=== PATIENT | male | born 2000 | race Caucasian/White ===

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

== ENCOUNTER 2019-04-24 13:20 | Emergency (ER) | payer OTHER, SELFPAY ==
[~2019-04-24] VITALS: Ht 177.8 cm; Wt 59.1 kg
[~2019-04-24 13:20] MED LIST: IBUP-1022 PO; INSUHUMDS; VITA50005
[2019-04-24] MEDS ORDERED: ADACEL/BOOSTRIX VACCINE (DIPHTH/PERTUSS/ACELL/TETANUS)0.5ML SYR (90715) IM ONE (17:15)
[2019-04-24 17:17] VITALS: BP 122/75
== END 2019-04-24 17:32 | disposition home or self-care (01) ==
LOC: M ED 13:20
DX: S61.201A Unspecified open wound of left index finger without damage to nail, initial encounter (principal); W26.0XXA Contact with knife, initial encounter; Y92.098 Other place in other non-institutional residence as the place of occurrence of the external cause; E11.9 Type 2 diabetes mellitus without complications; Z88.0 Allergy status to penicillin; F17.200 Nicotine dependence, unspecified, uncomplicated; Z79.899 Other long term (current) drug therapy; Z79.4 Long term (current) use of insulin

== ENCOUNTER 2019-08-16 15:04 | Emergency (ER) | payer OTHER ==
[~2019-08-16] VITALS: Ht 177.8 cm; Wt 60.3 kg
[2019-08-16] MEDS ORDERED: ACET-683 PO (16:10)
[2019-08-16] MEDS ORDERED: INSUHUMDS SC (16:10)
[2019-08-16 17:14] VITALS: BP 121/65
--- NOTE | 2019-08-17 06:52 | REP ---
REASON: Pain after trauma. PRIORS: None. There is a boxer's fracture. Electronically Signed by Tato Perez DO 08/17/2019 12:45 P
== END 2019-08-16 17:16 | disposition home or self-care (01) ==
LOC: M ED 15:04
DX: S62.336A Displaced fracture of neck of fifth metacarpal bone, right hand, initial encounter for closed fracture (principal); Y92.009 Unspecified place in unspecified non-institutional (private) residence as the place of occurrence of the external cause; Y93.C9 Activity, other involving computer technology and electronic devices; W22.8XXA Striking against or struck by other objects, initial encounter; E10.9 Type 1 diabetes mellitus without complications; F17.210 Nicotine dependence, cigarettes, uncomplicated; Z88.0 Allergy status to penicillin; Z79.4 Long term (current) use of insulin

== ENCOUNTER 2020-03-20 10:19 | Inpatient (IN) | payer OTHER ==
[2020-03-20] VITALS (20 sets, daily range): BP systolic 113–174; BP diastolic 60–93
[~2020-03-20] VITALS: Ht 180.3 cm; Wt 57.2 kg
[~2020-03-20 10:19] MED LIST changes: +ACET-683 PO; +INSUHUMDS SC
[2020-03-20] MEDS ORDERED: NS 1,000 ML IV ONE ×5 (10:45→17:00)
[2020-03-20] MEDS ORDERED: ONDANSETRON 4MG/2ML VIAL IV ONE (10:45)
[2020-03-20] MEDS ORDERED: INSULIN HUMAN REGULAR 100 UNITS in NS 99 ML IV SCH (10:57)
[2020-03-20] MEDS ORDERED: HumuLIN R (REGULAR) INSULIN (NovoLIN R) **100U/ML** PER UNIT IV ONE (11:00)
[2020-03-20 11:01] LABS: HEMATOCRIT 55.8 % (42.0-52.0); HEMOGLOBIN 18.2 g/dl (13.5-17.5); MEAN CORPUSCULAR HEMOGLOBIN 29.5 pg (27.0-33.0); MEAN CORPUSCULAR HGB CONC 32.6 g/dl (32.0-36.5); MEAN CORPUSCULAR VOLUME 90.6 fl (80.0-96.0); PLATELET COUNT, AUTOMATED 306 10^3/uL (150-450); RED BLOOD COUNT 6.16 10^6/uL (4.30-6.10)
[2020-03-20 11:02] LABS: ABG BASE EXCESS -23.9 (-2.0-2.0); ABG HCO3 4.2 MEQ/L (22.0-26.0); ABG O2 SATURATION 98.9 % (95.0-99.0); ABG STANDARD HCO3 8.9 MEQ/L (22.0-26.0); ABG TOTAL CO2 4.6 MEQ/L (22.0-29.0)
[2020-03-20 11:07] LABS: ABG PARTIAL PRESSURE CO2 15.1 mmHg (35.0-45.0); ABG PARTIAL PRESSURE O2 164.3 mmHg (75.0-100.0)
[2020-03-20 11:10] LABS: WHITE BLOOD COUNT 41.6 10^3/uL (4.0-10.0)
[2020-03-20 11:19] LABS: OSMOLALITY SERUM 338 MOSM/KG (275-295)
[2020-03-20] MEDS ORDERED: LIDOCAINE 2% 5ML JELLY UROJET TOP ONE (11:30)
[2020-03-20] MEDS ORDERED: LevoFLOXacin IV 750 MG in IV 1 EA IV ONE (11:30)
[2020-03-20] MEDS ORDERED: ISOVUE-370 76% 100ML VIAL As Ordered ONE (11:32)
[2020-03-20 11:36] LABS: ACETONE/KETONE > 46.00 MG/DL (<2.81); ALBUMIN 5.5 GM/DL (3.2-5.2); ALT/SGPT 60 U/L (12-78); BILIRUBIN,DIRECT < 0.1 MG/DL (0.0-0.2); BILIRUBIN,TOTAL 0.6 MG/DL (0.2-1.0); CK-MB VALUE MASS 1.1 NG/ML (<3.6); CPK CREATINE PHOSPHOKINASE 252 U/L (39-308); LIPASE 118 U/L (73-393); MB/CK RELATIVE INDEX 0.44 (< OR =4); PHOSPHORUS LEVEL 7.1 MG/DL (2.5-4.9); TROPONIN I < 0.02 NG/ML (< 0.10)
[2020-03-20 11:45] LABS: HEMOGLOBIN A1c 11.2 %
[2020-03-20 11:53] LABS: ATYPICAL LYMPH 2 % (0-5); LYMPHOCYTES 9 % (16-44); MONOCYTES 4 % (0-5); MYELOCYTES 2 % (0-0); NEUTROPHILS 78 % (28-66); PLATELET ESTIMATE NORMAL (NORMAL)
[2020-03-20 11:54] LABS: ANISOCYTOSIS 1+
--- NOTE | 2020-03-20 11:59 | REP ---
Clinical: Diabetic ketoacidosis . Comparison: None . Findings: The mediastinum and cardiac silhouette are stable and within normal limits for portable technique. The lung arroyo are clear without acute consolidation, effusion, or pneumothorax. Skeletal structures are intact. Impression: No acute cardiopulmonary process appreciated. Electronically Signed by Teddy Avila MD 03/20/2020 11:50 A
--- NOTE | 2020-03-20 12:05 | REP ---
Clinical: Abdominal pain with nausea and vomiting. Technique: Axial contrast enhanced images from the lung bases to the pubic symphysis using 100 ml Isovue 370 intravenous contrast material with coronal and sagittal re-formations. Findings: Lung bases are clear. Visualized heart and pericardium normal. Liver, spleen, pancreas, gallbladder, bilateral adrenal glands and kidneys are normal. The small and large bowel is without obstruction or acute inflammatory process. Normal terminal ileum and appendix are identified in the right lower quadrant. Few scattered sigmoid diverticula noted without acute diverticulitis. Pelvis demonstrates normal bladder and age appropriate prostate/seminal vesicles. No ascites. No free air. No adenopathy. Abdominal aorta without aneurysm or dissection. Musculoskeletal structures are intact and without acute osseous abnormality. Impression: No acute abdominopelvic pathology appreciated. Electronically Signed by Teddy Avila MD 03/20/2020 11:56 A
[2020-03-20] MEDS ORDERED: ACETAMINOPHEN TAB 650MG DOSE (2X325MG) PO PRN (12:15)
[2020-03-20] MEDS ORDERED: INSULIN IV RATE CHANGE DOCUMENTATION ML/HR XX SCH (12:15)
--- NOTE | 2020-03-20 12:43 | HPEPDOC ---
General Date of Admission 03/20/20 Date of Service: March 20, 2020 Chief Complaint The patient is a 19-year-old male admitted with a reason for visit of Vomiting, General Weakness. Source: Patient Exam Limitations: No limitations Timing/Duration: Day(s) Severity: Severe Associated Symptoms: Loss of appetite, Malaise, Nausea, Vomiting History of Present Illness Patient is 19 years old male with past medical history of type 1 diabetes diagnosed in 2013 on insulin pump presented hospital with polydipsia, polyuria, nausea and vomiting. Patient stated that on Saturday he drank alcohol cocktails, on the next day he started feeling nausea has increased polydipsia and polyuria. In emergency room patient was found to have leukocytosis of 14.6, glucose level of 608, potassium 5.7, lactic acid 7.53, blood gas showed pH 7, PCO2 15.1, bicarbonate 4.2. HbA1c 11. EKG showed sinus tachycardia. Abdomen CT did not show any acute abdominopelvic pathology . Home Medications Scheduled Insulin Human Lispro (Humalog) 100 Unit/1 Ml Vial, 1 UNITS SC DAILY, (Reported) sliding scale: 15 carbs/unit. MDD: 75 units Allergies Coded Allergies: Penicillins (Verified Allergy, Unknown, hives, 04/24/19) Past Medical History Medical History Type 1 diabetes Family History Both parents are healthy Social History * Smoker: Denies Alcohol: occationally Drugs: marijuana A-FIB/CHADSVASC A-FIB History Current/History of A-Fib/PAF?: No Current PO Anticoag Therapy: No Review of Systems Constitutional: Reports: Weakness, Fatigue; Denies: Chills, Fever Eyes: Denies: Pain, Vision change ENT: Denies: Head Aches Skin: Denies: Lesions Pulmonary: Reports: Dyspnea; Denies: Cough Cardiovascular: Denies: Chest Pain, Palpitations Gastrointestinal: Reports: Nausea, Vomiting Genitourinary: Denies: Incontinence, Hematuria Hematologic: Denies: Bruising Endocrine: Reports: Polydipsia, Polyuria Musculoskeletal: Denies: Neck Pain Neurological: Denies: Weakness Psych: Reports: Mood Normal Physical Examination General Exam: Positive: Alert, Cooperative Eye Exam: Positive: PERRLA ENT Exam: Positive: Atraumatic Neck Exam: Positive: Supple; Negative: JVD Chest Exam: Positive: Clear to auscultation Heart Exam: Positive: Tachycardic Telemetry: Positive: Sinus Abdomen Exam: Positive: Normal bowel sounds Extremity Exam: Negative: Clubbing, Cyanosis Skin Exam: Positive: Nl turgor and temperature Neuro Exam: Positive: Strength at 5/5 X4 ext, Cranial Nerves 3-12 NL Psych Exam: Positive: Mental status NL Vital Signs Vital Signs Date Time Temp Pulse Resp B/P (MAP) Pulse Ox O2 Delivery O2 Flow Rate FiO2 03/20/20 12:04 143 96 03/20/20 12:00 16 140/78 (98) 03/20/20 10:20 98.9 Room Air Laboratory Data Labs 24H Laboratory Tests 2 03/20/20 10:44: Neutrophils (%) (Auto) , Nucleated Red Blood Cells % (auto) 0.0, Neutrophils 78H, Band Neutrophils 5, Lymphocytes (Manual) 9L, Monocytes (Manual) 4, Myelocytes 2H, Atypical Lymphocytes 2, Anisocytosis 1+, Platelet Estimate NORMAL, Estimated Mean Plasma Glucose 275H, Hemoglobin A1c 11.2, Osmolality 338H, Phosphorus Level 7.1H, Magnesium Level 3.0H, Total Bilirubin 0.6, Direct Bilirubin < 0.1, Aspartate Amino Transf (AST/SGOT) 50H, Alanine Aminotransferase (ALT/SGPT) 60, Alkaline Phosphatase 148H, Total Creatine Kinase 252, Creatine Kinase MB 1.1, Creatine Kinase MB Relative Index 0.44, Troponin I < 0.02, Total Protein 10.0H, Albumin 5.5H, Albumin/Globulin Ratio 1.2, Lipase 118, B- Hydroxybutyrate > 46.00H 03/20/20 10:50: POC Glucose (Misc Panel) 608*H, POC Sodium (Misc Panel) 133L, POC Potassium (Misc Panel) 5.7H, POC Chloride (Misc Panel) 105, POC Total CO2 (Misc Panel) 8.0L, POC Blood Urea Nitrogen (Misc Panel 32H, POC Ionized Calcium (Misc Panel) 4.8, POC Creatinine (Misc Panel) 1.2, POC Hematocrit (Misc Panel) 58.0H 03/20/20 10:51: POC Lactate (Misc Panel) 7.53*H 03/20/20 10:52: Blood Gas Bicarbonate Standard 8.9L, Arterial Blood pH 7.060*L, Arterial Blood Partial Pressure CO2 15.1*L, Arterial Blood Partial Pressure O2 164.3H, Arterial Blood Total CO2 4.6L, Arterial Blood HCO3 4.2L, Arterial Blood Base Excess - 23.9L, Arterial Blood Oxygen Saturation 98.9 03/20/20 11:35: Urine Color STRAW, Urine Appearance CLEAR, Urine pH 5.0, Urine Specific [place] 1.021, Urine Protein 2+H, Urine Glucose (UA) 3+H, Urine Ketones 2+H, Urine Blood 2+H, Urine Nitrite NEGATIVE, Urine Bilirubin NEGATIVE, Urine Urobilinogen 0.2, Urine Leukocyte Esterase NEGATIVE, Urine WBC (Auto) 0, Urine RBC (Auto) 1, Urine Hyaline Casts (Auto) 0, Urine Bacteria (Auto) NEGATIVE, Urine Squamous Epithelial Cells 0, Urine Sperm (Auto) 03/20/20 12:05: Bedside Glucose (Misc Panel) 350H CBC/BMP Laboratory Tests 03/20/20 10:44 Microbiology Microbiology 03/20/20 Blood Culture, Received Pending Assessment/Plan Patient is 19 years old male with past medical history of type 1 diabetes diagnosed in 2013 on insulin pump presented hospital with polydipsia, polyuria, nausea and vomiting. Patient stated that on Saturday he drank alcohol cocktails, on the next day he started feeling nausea has increased polydipsia and polyuria. In emergency room patient was found to have leukocytosis of 14.6, glucose level of 608, potassium 5.7, lactic acid 7.53, blood gas showed pH 7, PCO2 15.1, bicarbonate 4.2. HbA1c 11. EKG showed sinus tachycardia. Abdomen CT did not show any acute abdominopelvic pathology . Problems (1) DKA (diabetic ketoacidoses) Status: Acute Problem Text: Patient is poor controlled diabetes Insulin drip BMP every 4 hours Potassium every 2 hours Aggressive IV hydration Nothing by mouth for now Phosphorus every 4 hours Monitor ABG Bicarbonate IV once (2) Type 1 diabetes Status: Chronic Problem Text: Patient has poor controlled diabetes HbA1c 11 Follow-up with blanket binder to adjust insulin pump in the outpatient settings (3) Leucocytosis Status: Acute Problem Text: most likely reactive 2/2 DKA Patient is afebrile, no obvious source of infection Will check blood culture Continue to monitor Plan / VTE VTE Prophylaxis Ordered?: Yes CARLEEN LOCKHART DO March 20, 2020 12:43
[2020-03-20] MEDS ORDERED: SODIUM BICARBONATE 8.4% INJ 50 ML SYRINGE IV SCH (13:00)
[2020-03-20] MEDS: INSULIN HUMAN REGULAR 100 UNITS in NS 99 ML IV SCH (13:13)
[2020-03-20] MEDS ORDERED: NS 1,000 ML IV SCH (14:00)
[2020-03-20] MEDS: INSULIN IV RATE CHANGE DOCUMENTATION ML/HR XX SCH ×6 (14:07→23:55)
[2020-03-20] MEDS ORDERED: INFLUENZA QUADRIVALENT PF VACCINE 0.5ML SYRINGE (90686) IM SCH (14:15)
[2020-03-20] MEDS ORDERED: KCL 20MEQ in NS 1000ML 1,000 ML IV SCH (14:15)
[2020-03-20 14:58] LABS: ABG BASE EXCESS -14.6 (-2.0-2.0); ABG HCO3 9.9 MEQ/L (22.0-26.0); ABG O2 SATURATION 98.6 % (95.0-99.0); ABG PARTIAL PRESSURE CO2 21.7 mmHg (35.0-45.0); ABG PARTIAL PRESSURE O2 135.1 mmHg (75.0-100.0); ABG STANDARD HCO3 13.6 MEQ/L (22.0-26.0); ABG TOTAL CO2 10.6 MEQ/L (22.0-29.0); ABG pH (ARTERIAL) 7.279 UNITS (7.350-7.450)
[2020-03-20 15:17] LABS: BLOOD UREA NITROGEN 23 MG/DL (7-18); CALCIUM LEVEL 8.5 MG/DL (8.5-10.1); CARBON DIOXIDE LEVEL 12 MEQ/L (21-32); CHLORIDE LEVEL 113 MEQ/L (98-107); CREATININE FOR GFR 1.22 MG/DL (0.70-1.30); GLUCOSE, FASTING 224 MG/DL (70-100); POTASSIUM SERUM 4.3 MEQ/L (3.5-5.1); SODIUM LEVEL 141 MEQ/L (136-145)
[2020-03-20] MEDS: KCL 20MEQ IN D5/0.45NS 1000ML 1,000 ML IV SCH ×2 (15:40→22:05)
[2020-03-20 16:50] LABS: PHOSPHORUS LEVEL 0.9 MG/DL (2.5-4.9); POTASSIUM SERUM 4.1 MEQ/L (3.5-5.1)
[2020-03-20] MEDS ORDERED: POTASSIUM PHOSPHATE INJ 20 MMOL in D5W 250 ML IV ONE (18:00)
[2020-03-20] MEDS: ONDANSETRON 4MG/2ML VIAL IV PRN ×2 (18:36→23:58)
[2020-03-20 18:51] LABS: HEMATOCRIT 40.8 % (42.0-52.0); MEAN CORPUSCULAR HEMOGLOBIN 29.6 pg (27.0-33.0); MEAN CORPUSCULAR HGB CONC 34.8 g/dl (32.0-36.5); MEAN CORPUSCULAR VOLUME 85.2 fl (80.0-96.0); PLATELET COUNT, AUTOMATED 243 10^3/uL (150-450); RED BLOOD COUNT 4.79 10^6/uL (4.30-6.10); WHITE BLOOD COUNT 26.3 10^3/uL (4.0-10.0)
[2020-03-20 18:52] LABS: HEMOGLOBIN 14.2 g/dl (13.5-17.5)
[2020-03-20 19:10] LABS: BLOOD UREA NITROGEN 17 MG/DL (7-18); CALCIUM LEVEL 8.3 MG/DL (8.5-10.1); CARBON DIOXIDE LEVEL 16 MEQ/L (21-32); CHLORIDE LEVEL 112 MEQ/L (98-107); CREATININE FOR GFR 0.95 MG/DL (0.70-1.30); GLUCOSE, FASTING 190 MG/DL (70-100); SODIUM LEVEL 137 MEQ/L (136-145)
[2020-03-20] MEDS: HEPARIN SOD (PORCINE) 5000UNITS/ML VIAL (J1644 PER 1000UNITS) SC SCH (19:54)
[2020-03-20] MEDS: RAMELTEON 8 MG TAB (ROZEREM) PO SCH (20:52)
--- NOTE | 2020-03-20 21:06 | ECGEPIP ---
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
[2020-03-21] VITALS (7 sets, daily range): BP systolic 108–135; BP diastolic 69–79
--- NOTE | 2020-03-21 00:12 | ECGEPIP ---
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 HEART RATE WAS 134 BPM AND TALL T WAVES WERE NOTED IN THE PRECORDIAL LEADS Electronically Signed on 03-21-2020 0:11:39 EDT by Talon Grijalva
[2020-03-21 00:34] LABS: BLOOD UREA NITROGEN 13 MG/DL (7-18); CALCIUM LEVEL 8.4 MG/DL (8.5-10.1); CARBON DIOXIDE LEVEL 19 MEQ/L (21-32); CHLORIDE LEVEL 110 MEQ/L (98-107); CREATININE FOR GFR 0.91 MG/DL (0.70-1.30); GLUCOSE, FASTING 151 MG/DL (70-100); POTASSIUM SERUM 3.7 MEQ/L (3.5-5.1); SODIUM LEVEL 137 MEQ/L (136-145)
[2020-03-21] MEDS: INSULIN IV RATE CHANGE DOCUMENTATION ML/HR XX SCH ×5 (00:59→10:18)
[2020-03-21] MEDS ORDERED: POTASSIUM PHOSPHATE INJ 20 MMOL in D5W 250 ML IV ONE (01:00)
[2020-03-21] MEDS: ONDANSETRON 4MG/2ML VIAL IV PRN (04:07)
[2020-03-21] MEDS: KCL 20MEQ IN D5/0.45NS 1000ML 1,000 ML IV SCH (04:24)
[2020-03-21 05:29] LABS: HEMOGLOBIN 13.3 g/dl (13.5-17.5); MEAN CORPUSCULAR HEMOGLOBIN 29.4 pg (27.0-33.0); MEAN CORPUSCULAR VOLUME 83.9 fl (80.0-96.0); PLATELET COUNT, AUTOMATED 216 10^3/uL (150-450); RED BLOOD COUNT 4.53 10^6/uL (4.30-6.10)
[2020-03-21 05:48] LABS: ALBUMIN 3.5 GM/DL (3.2-5.2); ALT/SGPT 35 U/L (12-78); BILIRUBIN,TOTAL 0.7 MG/DL (0.2-1.0); BLOOD UREA NITROGEN 11 MG/DL (7-18); CALCIUM LEVEL 8.5 MG/DL (8.5-10.1); CARBON DIOXIDE LEVEL 22 MEQ/L (21-32); CHLORIDE LEVEL 108 MEQ/L (98-107); CREATININE FOR GFR 0.82 MG/DL (0.70-1.30); GLUCOSE, FASTING 162 MG/DL (70-100); MAGNESIUM LEVEL 1.9 MG/DL (1.8-2.4); PHOSPHORUS LEVEL 2.5 MG/DL (2.5-4.9); POTASSIUM SERUM 3.7 MEQ/L (3.5-5.1); SODIUM LEVEL 137 MEQ/L (136-145); TOTAL PROTEIN 6.4 GM/DL (6.4-8.2)
[2020-03-21] MEDS: INSULIN HUMAN REGULAR 100 UNITS in NS 99 ML IV SCH ×2 (05:57→10:17)
[2020-03-21 08:49] LABS: BLOOD UREA NITROGEN 10 MG/DL (7-18); CALCIUM LEVEL 8.8 MG/DL (8.5-10.1); CARBON DIOXIDE LEVEL 22 MEQ/L (21-32); CHLORIDE LEVEL 108 MEQ/L (98-107); CREATININE FOR GFR 0.84 MG/DL (0.70-1.30); GLUCOSE, FASTING 163 MG/DL (70-100); PHOSPHORUS LEVEL 1.6 MG/DL (2.5-4.9); POTASSIUM SERUM 3.4 MEQ/L (3.5-5.1); SODIUM LEVEL 138 MEQ/L (136-145)
[2020-03-21] MEDS: HEPARIN SOD (PORCINE) 5000UNITS/ML VIAL (J1644 PER 1000UNITS) SC SCH ×2 (09:16→21:14)
[2020-03-21] MEDS ORDERED: GLUCAGON INJ 1MG VIAL SC PRN ×2 (09:45→10:45)
[2020-03-21] MEDS ORDERED: GLUCOSE 4GM CHEW TABLET PO PRN ×2 (09:45→10:45)
[2020-03-21] MEDS ORDERED: DEXTROSE 50% 50 ML SYRINGE IV PRN ×2 (09:45→10:45)
[2020-03-21] MEDS: LEVEMIR (INSULIN DETEMIR) 1 UNITS/0.01ML SC SCH ×2 (10:16→21:15)
--- NOTE | 2020-03-21 10:52 | IPNPDOC ---
Text Note Date of Service The patient was seen on 03/21/20. NOTE Subjective: Patient stated that he feels much better and he is hungry he wants to eat. Patient denied any fever, chills, nausea, vomiting chest pain, diarrhea or dysuria Objective: VITAL SIGNS: Please see below. GENERAL: awake, alert, NAD HEENT: NCAT, anicteric sclera, PERRLA NECK: supple, no JVD CARDIOVASCULAR EXAMINATION: NS1S2, regular rate/rhythm RESPIRATORY EXAMINATION: CTA b/l, no wheezes/rales/rhonchi ABDOMINAL EXAMINATION: positive bowel sounds x 4, NT EXTREMITIES: no cyanosis, clubbing, edema SKIN: warm, no rashes. NEUROLOGICAL EXAMINATION: AAO x 3, no motor/sensory deficits PSYCHIATRIC EXAMINATION: calm, normal affect Assessment/Plan Patient is 19 years old male with past medical history of type 1 diabetes diagnosed in 2013 on insulin pump presented hospital with polydipsia, polyuria, nausea and vomiting. Patient stated that on Saturday he drank alcohol cocktails, on the next day he started feeling nausea has increased polydipsia and polyuria. In emergency room patient was found to have leukocytosis of 14.6, glucose level of 608, potassium 5.7, lactic acid 7.53, blood gas showed pH 7, PCO2 15.1, bicarbonate 4.2. HbA1c 11. EKG showed sinus tachycardia. Abdomen CT did not show any acute abdominopelvic pathology . Problems (1) DKA (diabetic ketoacidoses) Resolved Anion gap closed, bicarbonate with an normal limit, blood glucose levels under control We'll start diabetes diet and bridge to basal insulin and insulin sliding scale (2) Type 1 diabetes Patient has poor controlled diabetes HbA1c 11 Follow-up with professor of chemical engineering to adjust insulin pump in the outpatient settings (3) Leucocytosis Improved most likely reactive 2/2 DKA Patient is afebrile, no obvious source of infection blood culture pending Continue to monitor Electrolytes imbalance Potassium replaced VS,Fishbone, I+O VS, Fishbone, I+O Laboratory Tests 03/20/20 13:18 03/20/20 14:23 03/20/20 16:00 03/20/20 18:39 03/20/20 23:54 03/21/20 05:07 03/21/20 08:07 Vital Signs Date Time Temp Pulse Resp B/P (MAP) Pulse Ox O2 Delivery O2 Flow Rate FiO2 03/21/20 08:00 98.1 100 20 119/71 (87) 97 Room Air I&O- Last 24 Hours up to 6 AM 03/21/20 06:00 Intake Total 6498.5 ml Output Total 2900 ml Balance 3598.5 ml CARLEEN LOCKHART DO March 21, 2020 10:52
[2020-03-21] MEDS: KCL 20MEQ in NS 1000ML 1,000 ML IV SCH ×2 (11:30→21:44)
[2020-03-21] MEDS: HumaLOG INSULIN (NovoLOG) PER UNIT SC SCH ×2 (12:25→18:04)
[2020-03-21 16:21] LABS: BLOOD UREA NITROGEN 10 MG/DL (7-18); CALCIUM LEVEL 8.5 MG/DL (8.5-10.1); CARBON DIOXIDE LEVEL 25 MEQ/L (21-32); CHLORIDE LEVEL 107 MEQ/L (98-107); CREATININE FOR GFR 0.83 MG/DL (0.70-1.30); GLUCOSE, FASTING 180 MG/DL (70-100); POTASSIUM SERUM 3.6 MEQ/L (3.5-5.1); SODIUM LEVEL 139 MEQ/L (136-145)
[2020-03-21] MEDS ORDERED: CEPACOL LOZENGE PO PRN (20:00)
[2020-03-21] MEDS ORDERED: HumaLOG INSULIN (NovoLOG) PER UNIT SC SCH (21:00)
[2020-03-21] MEDS: RAMELTEON 8 MG TAB (ROZEREM) PO SCH (21:14)
[2020-03-21] MEDS: CEPACOL LOZENGE PO PRN (21:14)
[2020-03-22 00:27] LABS: BLOOD UREA NITROGEN 8 MG/DL (7-18); CALCIUM LEVEL 8.4 MG/DL (8.5-10.1); CARBON DIOXIDE LEVEL 29 MEQ/L (21-32); CHLORIDE LEVEL 104 MEQ/L (98-107); CREATININE FOR GFR 0.73 MG/DL (0.70-1.30); GLUCOSE, FASTING 246 MG/DL (70-100); POTASSIUM SERUM 3.4 MEQ/L (3.5-5.1); SODIUM LEVEL 139 MEQ/L (136-145)
[2020-03-22] MEDS: CEPACOL LOZENGE PO PRN ×3 (01:18→11:52)
[2020-03-22 06:00] VITALS: BP 114/70
[2020-03-22] MEDS: HumaLOG INSULIN (NovoLOG) PER UNIT SC SCH ×2 (07:16→12:00)
[2020-03-22] MEDS: KCL 20MEQ in NS 1000ML 1,000 ML IV SCH (07:41)
[2020-03-22] MEDS: LEVEMIR (INSULIN DETEMIR) 1 UNITS/0.01ML SC SCH (07:42)
[2020-03-22] MEDS: HEPARIN SOD (PORCINE) 5000UNITS/ML VIAL (J1644 PER 1000UNITS) SC SCH (07:42)
[2020-03-22 08:46] LABS: BASO % 0.2 % (0.0-1.0); EOS % 0.1 % (0.0-3.0); HEMATOCRIT 40.2 % (42.0-52.0); HEMOGLOBIN 13.6 g/dl (13.5-17.5); LYMPH # 2.6 10^3/uL (1.5-5.0); LYMPH % 31.3 % (24.0-44.0); MEAN CORPUSCULAR HEMOGLOBIN 29.1 pg (27.0-33.0); MEAN CORPUSCULAR HGB CONC 33.8 g/dl (32.0-36.5); MEAN CORPUSCULAR VOLUME 85.9 fl (80.0-96.0); MONO # 1.1 10^3/uL (0.0-0.8); MONO % 12.6 % (0.0-5.0); NEUTROPHILS # 4.6 10^3/uL (1.5-8.5); NEUTROPHILS % 55.2 % (36.0-66.0); PLATELET COUNT, AUTOMATED 186 10^3/uL (150-450); RED BLOOD COUNT 4.68 10^6/uL (4.30-6.10); WHITE BLOOD COUNT 8.3 10^3/uL (4.0-10.0)
[2020-03-22 09:01] LABS: BLOOD UREA NITROGEN 8 MG/DL (7-18); CALCIUM LEVEL 8.6 MG/DL (8.5-10.1); CARBON DIOXIDE LEVEL 31 MEQ/L (21-32); CHLORIDE LEVEL 105 MEQ/L (98-107); CREATININE FOR GFR 0.62 MG/DL (0.70-1.30); GLUCOSE, FASTING 95 MG/DL (70-100); MAGNESIUM LEVEL 1.8 MG/DL (1.8-2.4); SODIUM LEVEL 143 MEQ/L (136-145)
[2020-03-22] MEDS ORDERED: POTASSIUM CHLORIDE 10 MEQ SR TABLET PO ONE ×3 (09:30→15:00)
[2020-03-22] MEDS ORDERED: KCL 10MEQ/100ML SWI (KRUN) 10 MEQ in IV 1 EA IV ONE (09:45)
[2020-03-22] MEDS ORDERED: CHLORASEPTIC SPRAY MT PRN (12:15)
[2020-03-22] MEDS ORDERED: SORE15LO PO (13:44)
[2020-03-22] MEDS ORDERED: CHLORSP MT (13:44)
[2020-03-22] MEDS ORDERED: ACET1TAB55 PO (13:44)
[2020-03-22] MEDS ORDERED: INSU1MIS20 SC (13:44)
[2020-03-22] MEDS ORDERED: INSUDET SC (13:44)
[2020-03-22] MEDS ORDERED: BLOOKIT21 XX (13:44)
[2020-03-22] MEDS ORDERED: LANC30MI XX (13:44)
[2020-03-22] MEDS ORDERED: GLUC1TES2 XX (13:44)
[2020-03-22] MEDS ORDERED: ALCOPAD25 TOP (13:44)
[2020-03-22] MEDS ORDERED: INSUHUMDS SC ×2 (13:49)
[2020-03-22 14:00] VITALS: BP 119/78
[2020-03-22 14:04] LABS: BLOOD UREA NITROGEN 10 MG/DL (7-18); CALCIUM LEVEL 9.3 MG/DL (8.5-10.1); CARBON DIOXIDE LEVEL 29 MEQ/L (21-32); CHLORIDE LEVEL 107 MEQ/L (98-107); CREATININE FOR GFR 0.62 MG/DL (0.70-1.30); GLUCOSE, FASTING 106 MG/DL (70-100); POTASSIUM SERUM 3.6 MEQ/L (3.5-5.1); SODIUM LEVEL 142 MEQ/L (136-145)
--- NOTE | 2020-03-22 18:32 | DS.PDOC ---
Discharge Summary General Date of Admission March 20, 2020 at 12:15 Date of Discharge 03/22/20 Discharge Summary PROCEDURES PERFORMED DURING STAY: [None]. ADMITTING DIAGNOSES: DKA (diabetic ketoacidoses) Type 1 diabetes Leucocytosis Electrolytes imbalance DISCHARGE DIAGNOSES: DKA (diabetic ketoacidoses) Type 1 diabetes Leucocytosis Electrolytes imbalance COMPLICATIONS/CHIEF COMPLAINT: Diabetic Ketoacidoses. HISTORY OF PRESENT ILLNESS: Patient is 19 years old male with past medical history of type 1 diabetes diagnosed in 2013 on insulin pump presented hospital with polydipsia, polyuria, nausea and vomiting. Patient stated that on Saturday he drank alcohol cocktails, on the next day he started feeling nausea has increased polydipsia and polyuria. In emergency room patient was found to have leukocytosis of 14.6, glucose level of 608, potassium 5.7, lactic acid 7.53, blood gas showed pH 7, PCO2 15.1, bicarbonate 4.2. HbA1c 11. EKG showed sinus tachycardia. Abdomen CT did not show any acute abdominopelvic pathology . HOSPITAL COURSE: During hospital stay following issue addressed (1) DKA (diabetic ketoacidoses) Resolved after insulin drip Anion gap closed, bicarbonate with an normal limit, blood glucose levels under control Patient received treatment with basal insulin and insulin sliding scale (2) Type 1 diabetes Patient has poor controlled diabetes HbA1c 11 Follow-up with wharf helper to adjust insulin pump in the outpatient settings (3) Leucocytosis Resolved most likely reactive 2/2 DKA Patient is afebrile, no obvious source of infection blood culture negative Continue to monitor Electrolytes imbalance Potassium replaced DISCHARGE MEDICATIONS: Please see below. ALLERGIES: Please see below. PHYSICAL EXAMINATION ON DISCHARGE: VITAL SIGNS: Please see below. GENERAL: awake, alert, NAD HEENT: NCAT, anicteric sclera, PERRLA NECK: supple, no JVD CARDIOVASCULAR EXAMINATION: NS1S2, regular rate/rhythm RESPIRATORY EXAMINATION: CTA b/l, no wheezes/rales/rhonchi ABDOMINAL EXAMINATION: positive bowel sounds x 4, NT EXTREMITIES: no cyanosis, clubbing, edema SKIN: warm, no rashes. NEUROLOGICAL EXAMINATION: AAO x 3, no motor/sensory deficits PSYCHIATRIC EXAMINATION: calm, normal affect LABORATORY DATA: Please see below. PROGNOSIS: Fair ACTIVITY: [As tolerated]. DIET: Diabetes DISPOSITION: Home, Self-Care. DISCHARGE INSTRUCTIONS: Check glucose level before each meal and before bed time ITEMS TO FOLLOWUP ON ON OUTPATIENT: Follow-up with wharf helper and dyspnea DISCHARGE CONDITION: [Stable]. TIME SPENT ON DISCHARGE: Greater than 20 minutes. Vital Signs/I&Os Vital Signs Date Time Temp Pulse Resp B/P (MAP) Pulse Ox O2 Delivery O2 Flow Rate FiO2 03/22/20 14:00 97.4 94 20 119/78 (92) 98 Room Air I&O- Last 24 Hours up to 6 AM 03/22/20 06:00 Intake Total 3566 ml Output Total 4175 ml Balance -609 ml Laboratory Data Labs 24H Laboratory Tests 2 03/21/20 20:17: Bedside Glucose (Misc Panel) 191H 03/21/20 23:45: Anion Gap 6L, Calcium Level 8.4L 03/22/20 00:21: Bedside Glucose (Misc Panel) 253H 03/22/20 04:20: Bedside Glucose (Misc Panel) 75 03/22/20 06:51: Bedside Glucose (Misc Panel) 97 03/22/20 08:20: Immature Granulocyte % (Auto) 0.6, Neutrophils (%) (Auto) 55.2, Lymphocytes (%) (Auto) 31.3, Monocytes (%) (Auto) 12.6H, Eosinophils (%) (Auto) 0.1, Basophils (%) (Auto) 0.2, Neutrophils # (Auto) 4.6, Lymphocytes # (Auto) 2.6, Monocytes # (Auto) 1.1H, Eosinophils # (Auto) 0.0, Basophils # (Auto) 0.0, Nucleated Red Blood Cells % (auto) 0.0, Anion Gap 7L, Calcium Level 8.6, Magnesium Level 1.8 03/22/20 11:35: Anion Gap 6L, Calcium Level 9.3 03/22/20 12:01: Bedside Glucose (Misc Panel) 76 CBC/BMP Laboratory Tests 03/21/20 23:45 03/22/20 08:20 03/22/20 11:35 FSBS Laboratory Tests Test 03/21/20 20:17 03/22/20 00:21 03/22/20 04:20 03/22/20 06:51 Range/Units Bedside Glucose (Misc Panel) 191 253 75 97 70-105 MG/DL Test 03/22/20 12:01 Range/Units Bedside Glucose (Misc Panel) 76 70-105 MG/DL Microbiology Microbiology 03/20/20 Blood Culture - Preliminary, Resulted No Growth after 48 hours. All Specime... 03/20/20 Blood Culture - Preliminary, Resulted No Growth after 48 hours. All Specime... Discharge Medications Scheduled Blood Sugar Diagnostic (Advanced Glucose Test Strips) 1 Each Strip, 1 STRIP XX ASDIRECTED Insulin Detemir (Levemir) 100 Unit/1 Ml Vial, 14 UNITS SC BID Insulin Human Lispro (Humalog) 100 Unit/1 Ml Vial, 0 UNITS SC AC as per sliding scale from hospital protocol Insulin Human Lispro (Humalog) 100 Unit/1 Ml Vial, 0 UNITS SC QHS as per sliding scale from hospital protocol Scheduled PRN Acetaminophen (Acetaminophen) 325 Mg Tablet, 650 MG PO Q4H PRN for PAIN OR FEVER Benzocaine/Menthol (Sore Throat Lozenge) 1 Each Lozenge, 1 ISABEL PO Q4HP PRN for SORE THROAT Phenol (Sore Throat [place]) 177 Ml [place], 2 SPRAY MT Q2HP PRN for SORE THROAT Allergies Coded Allergies: Penicillins (Verified Allergy, Unknown, hives, 04/24/19) CARLEEN LOCKHART DO March 22, 2020 18:32
== END 2020-03-22 15:28 | disposition home or self-care (01) | DRG 420 ==
LOC: M ED 10:19 → M ICU 12:15 → ENRESERV 12:31 → M MSPAV 03-21 11:40
PROVIDERS: ADMIT Internal Medicine; ATTEND Internal Medicine
DX: E10.10 Type 1 diabetes mellitus with ketoacidosis without coma (principal); D72.829 Elevated white blood cell count, unspecified; Z79.4 Long term (current) use of insulin; Z79.899 Other long term (current) drug therapy; Z88.0 Allergy status to penicillin

== ENCOUNTER → 2020-03-29 | Outpatient (CLI) | payer OTHER ==
[~2020-03-29] MED LIST changes: +ACET1TAB55 PO; +ALCOPAD25 TOP; +BLOOKIT21 XX; +CHLORSP MT; +GLUC1TES2 XX; +INSU1MIS20 SC; +INSUDET SC; +LANC30MI XX; +SORE15LO PO
[2020-03-29 17:38] LABS: BLOOD UREA NITROGEN 18 MG/DL (7-18); CARBON DIOXIDE LEVEL 30 MEQ/L (21-32); CHLORIDE LEVEL 105 MEQ/L (98-107); CREATININE FOR GFR 0.72 MG/DL (0.70-1.30); GLUCOSE, FASTING 208 MG/DL (70-100); POTASSIUM SERUM 4.1 MEQ/L (3.5-5.1); SODIUM LEVEL 139 MEQ/L (136-145)
== END ==
LOC: M LAB 16:06
PROVIDERS: ATTEND Nurse Practitioner Family
DX: E87.6 Hypokalemia (principal)

== ENCOUNTER → 2020-03-31 | Outpatient (REF) | payer OTHER ==
[2020-03-31 16:24] LABS: BLOOD UREA NITROGEN 17 MG/DL (7-18); CALCIUM LEVEL 9.4 MG/DL (8.5-10.1); CARBON DIOXIDE LEVEL 27 MEQ/L (21-32); CHLORIDE LEVEL 106 MEQ/L (98-107); CREATININE FOR GFR 0.81 MG/DL (0.70-1.30); GLUCOSE, FASTING 165 MG/DL (70-100); POTASSIUM SERUM 4.4 MEQ/L (3.5-5.1); SODIUM LEVEL 139 MEQ/L (136-145)
== END ==
LOC: M SFHCPLAZ 11:41
PROVIDERS: ATTEND Nurse Practitioner Family
DX: E87.8 Other disorders of electrolyte and fluid balance, not elsewhere classified (principal)

== ENCOUNTER → 2021-10-16 | Outpatient (CLI) | payer OTHER ==
[2021-10-16 18:40] LABS: BASO % 0.2 % (0.0-1.0); EOS # 0.3 10^3/uL (0.0-0.5); EOS % 1.4 % (0.0-3.0); HEMATOCRIT 47.4 % (42.0-52.0); LYMPH # 2.3 10^3/uL (1.5-5.0); LYMPH % 13.5 % (24.0-44.0); MEAN CORPUSCULAR HEMOGLOBIN 29.8 pg (27.0-33.0); MEAN CORPUSCULAR HGB CONC 33.8 g/dl (32.0-36.5); MEAN CORPUSCULAR VOLUME 88.3 fl (80.0-96.0); MONO # 1.2 10^3/uL (0.0-0.8); MONO % 6.8 % (2.0-8.0); NEUTROPHILS # 13.4 10^3/uL (1.5-8.5); NEUTROPHILS % 77.6 % (36.0-66.0); PLATELET COUNT, AUTOMATED 282 10^3/uL (150-450); RED BLOOD COUNT 5.37 10^6/uL (4.30-6.10); WHITE BLOOD COUNT 17.3 10^3/uL (4.0-10.0)
[2021-10-16 21:14] LABS: HEMOGLOBIN A1c 10.7 %
[2021-10-16 21:27] LABS: ALBUMIN 4.4 GM/DL (3.2-5.2); ALT/SGPT 28 U/L (12-78); BILIRUBIN,TOTAL 0.6 MG/DL (0.2-1.0); BLOOD UREA NITROGEN 18 MG/DL (7-18); CALCIUM LEVEL 10.3 MG/DL (8.5-10.1); CARBON DIOXIDE LEVEL 29 MEQ/L (21-32); CHLORIDE LEVEL 101 MEQ/L (98-107); CHOLESTEROL LEVEL 163 MG/DL (<200); CHOLESTEROL RISK RATIO 3.704 (<5); CREATININE FOR GFR 0.85 MG/DL (0.70-1.30); GLOMERULAR FILTRATION RATE > 60.0 (>60); GLUCOSE, FASTING 221 MG/DL (70-100); HDL CHOLESTEROL 44 MG/DL (>40); LDL CHOLESTEROL 90 MG/DL (<100); LIPASE 42 U/L (73-393); NON-HDL-C 119 MG/DL; POTASSIUM SERUM 3.9 MEQ/L (3.5-5.1); SODIUM LEVEL 138 MEQ/L (136-145); TOTAL PROTEIN 7.7 GM/DL (6.4-8.2); TRIGLYCERIDES LEVEL 146 MG/DL (<150)
== END ==
LOC: M PLALAB 15:25
PROVIDERS: ATTEND Physician Assistant
DX: R11.10 Vomiting, unspecified (principal); R19.7 Diarrhea, unspecified; E10.9 Type 1 diabetes mellitus without complications; K21.9 Gastro-esophageal reflux disease without esophagitis
CPT/HCPCS: 36415; 80053; 80061; 83036; 83690; 85025; 86677; U0003

== ENCOUNTER 2023-01-22 18:34 | Emergency (ER) | payer BC, OTHER ==
[~2023-01-22] VITALS: Ht 180.3 cm; Wt 62.6 kg
[~2023-01-22 18:34] MED LIST changes: +BENZ1LOZ2 PO; -SORE15LO PO
[2023-01-22] MEDS ORDERED: BASA100I SQ (18:46)
[2023-01-22] MEDS ORDERED: NS 1,000 ML IV ONE (19:20)
[2023-01-22 20:14] LABS: VENOUS PH 7.388 UNITS (7.330-7.430)
[2023-01-22 20:15] LABS: VENOUS BASE EXCESS 1.5 (-2.0-2.0); VENOUS O2 SATURATION 84.7 % (60.0-80.0); VENOUS PARTIAL PRESSURE CO2 45.9 mmHg (38.0-50.0); VENOUS PARTIAL PRESSURE O2 46.5 mmHg (30.0-50.0); VENOUS STANDARD HCO3 25.4 MEQ/L; VENOUS TOTAL CO2 28.4 MEQ/L (24.0-28.0)
[2023-01-22 20:18] LABS: BASO % 0.3 % (0.0-1.0); EOS % 0.3 % (0.0-3.0); HEMATOCRIT 42.4 % (42.0-52.0); HEMOGLOBIN 14.5 g/dl (13.5-17.5); LYMPH % 27.1 % (24.0-44.0); MEAN CORPUSCULAR HEMOGLOBIN 29.9 pg (27.0-33.0); MEAN CORPUSCULAR HGB CONC 34.2 g/dl (32.0-36.5); MEAN CORPUSCULAR VOLUME 87.4 fl (80.0-96.0); MONO # 0.5 10^3/uL (0.0-0.8); MONO % 7.4 % (2.0-8.0); NEUTROPHILS # 4.7 10^3/uL (1.5-8.5); NEUTROPHILS % 64.6 % (36.0-66.0); PLATELET COUNT, AUTOMATED 222 10^3/uL (150-450); RED BLOOD COUNT 4.85 10^6/uL (4.30-6.10); WHITE BLOOD COUNT 7.2 10^3/uL (4.0-10.0)
[2023-01-22 20:28] LABS: HEMOGLOBIN A1c 12.5 % (4.0-6.0)
[2023-01-22 20:40] LABS: LIPASE 19 U/L (12-53)
[2023-01-22 20:43] LABS: ALBUMIN 3.9 G/DL (3.2-5.2); ALKALINE PHOSPHATASE 83 U/L (46-116); ALT/SGPT 23 U/L (7.0-40); AST/SGOT 13 U/L (<34); BILIRUBIN,DIRECT 0.2 MG/DL (<0.4); BILIRUBIN,TOTAL 0.5 MG/DL (0.3-1.2); BLOOD UREA NITROGEN 17 MG/DL (9-23); CALCIUM LEVEL 9.2 MG/DL (8.5-10.1); CARBON DIOXIDE LEVEL 27 MMOL/L (20-31); CHLORIDE LEVEL 104 MMOL/L (98-107); CREATININE FOR GFR 0.66 MG/DL (0.70-1.30); GLOMERULAR FILTRATION RATE > 60.0 (>60); GLUCOSE, FASTING 254 MG/DL (60-100); POTASSIUM SERUM 4.1 MMOL/L (3.5-5.1); SODIUM LEVEL 139 MMOL/L (136-145); TOTAL PROTEIN 6.4 G/DL (5.7-8.2)
[2023-01-22 20:51] LABS: OSMOLALITY SERUM 298 MOSM/KG (275-295)
[2023-01-22] MEDS ORDERED: [UNRECOGNIZED DRUG - CODE] SC (21:56)
[2023-01-22 22:00] VITALS: BP 118/64
== END 2023-01-22 22:16 | disposition home or self-care (01) ==
LOC: M ED 18:34
DX: E10.65 Type 1 diabetes mellitus with hyperglycemia (principal); R00.0 Tachycardia, unspecified; I45.19 Other right bundle-branch block; I49.49 Other premature depolarization; F10.10 Alcohol abuse, uncomplicated; F12.10 Cannabis abuse, uncomplicated; F17.200 Nicotine dependence, unspecified, uncomplicated; Z79.4 Long term (current) use of insulin; Z79.1 Long term (current) use of non-steroidal anti-inflammatories (NSAID); Z79.899 Other long term (current) drug therapy